=== PATIENT | female | born 1975 ===

== ENCOUNTER 2018-05-18 15:48 | Emergency (ER) | payer MEDICAID, OTHER ==
[~2018-05-18] VITALS: Ht 167.6 cm; Wt 129.0 kg
[~2018-05-18 15:48] MED LIST: ALPR1TAB2 PO; ETHI1TAB26 PO; HYDR-3307 PO; IBUP-1223 PO; METF850T10 PO; MIRA25TA PO; SPIR50TA4 PO
--- NOTE | 2018-05-18 16:15 | NUR ---
TP RN: REGISTRATION CALLED TO REQUEST FULL REG
[2018-05-18 16:42] LABS: BASOPHILS # (AUTO) 0.09 x10^3/uL (0-0.1); BASOPHILS % (AUTO) 1 % (0-1); EOSINOPHILS # (AUTO) 0.11 x10^3/uL (0-0.4); EOSINOPHILS % (AUTO) 1 % (1-7); LYMPHOCYTES # (AUTO) 3.28 x10^3/uL (1-3.4); LYMPHOCYTES % (AUTO) 27 % (22-44); MD NO; MEAN CORPUSCULAR HEMOGLOBIN 30.8 pg (27.0-34.8); MEAN CORPUSCULAR HGB CONC 33.1 g/dL (32.4-35.8); MEAN CORPUSCULAR VOLUME 93.2 fL (80-100); MEAN PLATELET VOLUME 7.7 fL (7.4-10.4); MONOCYTES # (AUTO) 0.74 x10^3/uL (0.2-0.8); MONOCYTES % (AUTO) 6 % (2-9); NEUTROPHILS % (AUTO) 65 % (42-75); PLATELET COUNT 352 x10^3/uL (130-400); RED BLOOD COUNT 4.64 x10^6/uL (3.82-5.3); RED CELL DISTRIBUTION WIDTH 14.1 % (9.6-15.2)
[2018-05-18 16:52] LABS: ALBUMIN 3.5 g/dL (3.4-5.0); ANION GAP 6 mmol/L (5-15); CALCIUM 8.7 mg/dL (8.5-10.1); CHLORIDE 107 mmol/L (98-107)
[2018-05-18 16:54] LABS: SALICYLATE LEVEL < 1.7 mg/dL (2.8-20.0)
[2018-05-18 16:59] LABS: ALANINE AMINOTRANSFERASE 19 U/L (12-78); ALKALINE PHOSPHATASE 64 U/L (45-117); BILIRUBIN,TOTAL 0.4 mg/dL (0.2-1.0); CREATININE 0.93 mg/dL (0.55-1.02); TOTAL PROTEIN 7.2 g/dL (6.4-8.2)
[2018-05-18 17:02] LABS: ACETAMINOPHEN < 2 mcg/mL (10-30)
[2018-05-18] MEDS ORDERED: METF500T17 PO (17:14)
[2018-05-18] MEDS ORDERED: PREG200C PO (17:14)
--- NOTE | 2018-05-18 17:15 | NUR ---
TP RN: reg again called to full reg pt
[2018-05-18 17:17] VITALS: BP 136/87
[2018-05-18 17:25] LABS: AMPHETAMINE SCREEN, URINE Negative (Negative); BARBITURATE SCREEN, URINE Negative (Negative); BENZODIAZEPINE SCREEN, URINE Positive (Negative); CANNABINOID SCREEN, URINE Positive (Negative); COCAINE SCREEN, URINE Negative (Negative); METHADONE SCREEN, URINE Negative (Negative); OPIATE SCREEN, URINE Negative (Negative)
--- NOTE | 2018-05-18 17:30 | NUR ---
break coverage: assumed care of pt on behalf of primary RN for lunch break only. pt here for SI and is on legal hold. room secure and sitter present at bedside. pt calm and cooperative at this time.
--- NOTE | 2018-05-18 18:57 | NUR ---
REPORT GIVEN TO TELEPSYCH MD. INFORMATION ON LEGAL HOLD PAPERWORK CONVEYED TO MD. HE WILL BE CALLING PT SHORTLY.
--- NOTE | 2018-05-18 19:47 | NUR ---
PT READY TO DC. CLOTHING AND BELONGINGS RETURNED.
== END 2018-05-18 20:09 | disposition home or self-care (01) ==
LOC: ED 17:22
DX: F32.9 Major depressive disorder, single episode, unspecified (principal); J45.909 Unspecified asthma, uncomplicated; Z87.891 Personal history of nicotine dependence
CPT/HCPCS: 36415; 80053; 80307; 80329; 84703; 85025; 99284; G0480